=== PATIENT | female | born 1950 ===

== ENCOUNTER 2020-07-08 13:30 | Outpatient (CLI) | payer OTHER ==
[~2020-07-08 13:30] MED LIST: CRESTOR10 MG; METFORMIN HCL500 MG; SYNTHROID75 MCG; ZOLOFT100 MG
== END 2020-07-08 13:32 | disposition home or self-care (01) ==
LOC: RAD 13:30
PROVIDERS: ATTEND Internal Medicine Cardiovascular Disease
DX: M25.552 Pain in left hip (principal)